=== PATIENT | female | born 1970 | race Caucasian/White ===

== ENCOUNTER 2018-05-02 18:01 | Emergency (ER) | payer SELFPAY ==
--- NOTE | 2018-05-02 18:41 | UC ---
Respiratory Complaint HPI - HPI Summary HPI Summary: 47-year-old woman comes in with a chief complaint of 4 days of upper respiratory tract infection symptoms and chest congestion. She's having yellow sputum coughing. No chest pain. She has some runny nose some sore throat. No bodyaches. Patient also reports that she's had a rash for year that has been described as as staph. And she seen a freight car builder for this condition where she previously lived. She is new coming [facility] to [facility] and does not have freight car builder here in [place]. - History of Current Complaint Chief Complaint: UCGeneralIllness Stated Complaint: uri Time Seen by Provider: 05/02/18 18:31 Hx Last Menstrual Period: over 3 weeks ago Pain Intensity: 0 - Allergies/Home Medications Allergies/Adverse Reactions: Allergies Allergy/AdvReac Type Severity Reaction Status Date / Time No Known Allergies Allergy Verified 05/02/18 18:20 Home Medications: Home Medications Doxepin (NF) 25 mg PO BEDTIME 05/02/18 [History Confirmed 05/02/18] Methylphenidate HCl [Methylphenidate ER] 72 mg PO DAILY 05/02/18 [History Confirmed 05/02/18] PMH/Surg Hx/FS Hx/Imm Hx Previously Healthy: Yes - Surgical History Surgical History: Yes Surgery Procedure, Year, and Place: c section - Family History Known Family History: Positive: Non-Contributory - Social History Alcohol Use: Daily Substance Use Type: None Smoking Status (MU): Never Smoked Tobacco Review of Systems All Other Systems Reviewed And Are Negative: Yes Constitutional: Positive: Negative Skin: Positive: Negative Eyes: Positive: Negative ENT: Positive: Sore Throat, Nasal Discharge, Sinus Congestion Respiratory: Positive: Shortness Of Breath, Cough Cardiovascular: Positive: Negative Gastrointestinal: Positive: Negative Motor: Positive: Negative Neurovascular: Positive: Negative Musculoskeletal: Positive: Negative Neurological: Positive: Negative Psychological: Positive: Negative Is Patient Immunocompromised?: No Physical Exam Triage Information Reviewed: Yes Appearance: No Pain Distress, Well-Nourished, Ill-Appearing - mild Vital Signs: Initial Vital Signs Temp 99.4 F 05/02/18 18:16 Pulse 105 05/02/18 18:16 Resp 20 05/02/18 18:16 BP 150/102 05/02/18 18:16 Pulse Ox 100 05/02/18 18:16 Vital Signs Reviewed: Yes Eye Exam: Normal Eyes: Positive: Conjunctiva Clear ENT: Positive: Pharyngeal erythema, Nasal congestion, Nasal drainage, TMs normal Neck exam: Normal Neck: Positive: Supple Respiratory: Positive: Lungs clear, Normal breath sounds, No respiratory distress Cardiovascular: Positive: RRR Musculoskeletal Exam: Normal Musculoskeletal: Positive: Strength Intact, ROM Intact Neurological Exam: Normal Neurological: Positive: Alert, Muscle Tone Normal Psychological Exam: Normal Psychological: Positive: Normal Response To Family, Age Appropriate Behavior Skin Exam: Normal UC Diagnostic Evaluation - Laboratory O2 Sat by Pulse Oximetry: 100 Respiratory Course/Dx - Course Course Of Treatment: DISCUSSED VIRAL VERSES BACTERIAL INFECTION AND THE ROLE OF ANTIBIOTICS. THE PATIENT WISHES TO BE ON ANTIBIOTIC AT THIS TIME. - Differential Dx/Diagnosis Provider Diagnosis: Bronchitis, Rash Discharge - Sign-Out/Discharge Documenting (check all that apply): Patient Departure All imaging exams completed and their final reports reviewed: No Studies - Discharge Plan Condition: Stable Disposition: HOME Prescriptions: Amoxicillin/Clavulanate TAB* [Augmentin TAB 875*] 875 mg PO BID #20 tab Patient Education Materials: Acute Bronchitis (ED), Acute Rash (ED) Referrals: [facility] [Outside] Antonio Busch MD [Medical Doctor] - Steff Shah [Medical Doctor] - Additional Instructions: FOLLOW UP WITH YOUR DOCTOR IF NOT COMPLETELY IMPROVED. GET RECHECKED FOR ANY WORSENING OF YOUR CONDITION OR QUESTIONS OR CONCERNS. - Billing Disposition and Condition Condition: STABLE Disposition: Home
== END 2018-05-02 18:45 | disposition home or self-care (01) ==
LOC: UCEAST 18:01
DX: J40 Bronchitis, not specified as acute or chronic (principal); R21 Rash and other nonspecific skin eruption
CPT/HCPCS: 99202; G0463

== ENCOUNTER 2018-10-21 16:52 | Emergency (ER) | payer SELFPAY ==
[2018-10-21] MEDS ORDERED: NS 0.9% 1000 ML** 1,000 ML IV ONE (17:15)
--- NOTE | 2018-10-21 17:29 | ED ---
Substance Abuse/Use - HPI Summary HPI Summary: A 47 y/o female brought in by [facility] presents to [facility] with a chief complaint of possible substance abuse of an unknown substance today. The patient is currently AMS. Per significant other, the patient has a Hx of EtOH abuse. The patient may have had access to Xanax or Ativan. The patient reportedly drank alcohol of an unknown amount today. Per boyfriend, the patient had been depressed and had been staying with her sister and father for a few weeks. He denies her using any street drugs. Her boyfriend states that the patient was last known well at 15:30. The patient is a level 5 caveat due to her AMS. - History Of Current Complaint Stated Complaint: AMS PER EMS Hx Obtained From: Family/Education Analyst, EMS Hx Last Menstrual Period: over 3 weeks ago Onset/Duration of Drug/ETOH Abuse: Hours Ingestion History: Type/Name Of Drug - unknown, Amount Ingested - unknown, Approximate Time Of Ingestion - unknown Overdose Characteristics: Oral Severity Initially: Mild Severity Currently: Mild Character: Other - AMS Aggravating Factor(s): Nothing Alleviating Factor(s): Nothing Associated Signs And Symptoms: Other: - AMS - Allergies/Home Medications Allergies/Adverse Reactions: Allergies Allergy/AdvReac Type Severity Reaction Status Date / Time No Known Allergies Allergy Verified 05/02/18 18:20 Home Medications: Home Medications NK [No Home Medications Reported] 10/21/18 [History Confirmed 10/21/18] PMH/Surg Hx/FS Hx/Imm Hx Endocrine/Hematology History: Denies: Hx Diabetes, Hx Thyroid Disease Cardiovascular History: Reports: Hx Hypertension Respiratory History: Denies: Hx Asthma, Hx Chronic Obstructive Pulmonary Disease (COPD) GI History: Denies: Hx Ulcer - Surgical History Surgery Procedure, Year, and Place: c section Infectious Disease History: No Infectious Disease History: Denies: Hx Hepatitis, Hx Human Immunodeficiency Virus (HIV), Traveled Outside the [place] in Last 30 Days - Family History Known Family History: Positive: Non-Contributory - Social History Alcohol Use: Daily Substance Use Type: Reports: None Smoking Status (MU): Never Smoked Tobacco Review of Systems - ROS Summary Review of Systems Summary: Level 5 caveat due to AMS Negative: Fever Neurological: Other - positive: AMS, possible substance abuse All Other Systems Reviewed And Are Negative: No Physical Exam - Summary Physical Exam Summary: Level 5 Caveat due to AMS, thrashing on beds Constitutional: dis-sheveled, thrashing on bed Skin: Warm, Dry, Diffuse scabbing to arms and face HENT: Normocephalic; Atraumatic, dry mucous membranes Eyes: Conjunctiva normal Neck: Musculoskeletal ROM normal neck. (-) JVD, (-) Stridor, (-) Nuchal rigidity Cardio: Rhythm regular, tachycardic, Heart sounds normal; Intact distal pulses; Radial pulses are 2+ and symmetric. (-) Murmur Pulmonary/Chest wall: Effort normal. (-) Respiratory distress, (-) Wheezes, (-) Rales Abd: Soft, (-) tenderness, (-) Distension, (-) Guarding, (-) Rebound Musculoskeletal: (-) Edema Lymph: (-) Cervical adenopathy Neuro: intermittently responding to boyfriend, moving all extremities, no focal neurological deficits Psych: deferred Triage Information Reviewed: Yes Vital Signs On Initial Exam: Initial Vitals Temp Pulse Resp BP Pulse Ox 97.7 F 126 13 185/142 95 10/21/18 16:53 10/21/18 16:53 10/21/18 16:53 10/21/18 16:53 10/21/18 16:53 Vital Signs Reviewed: Yes - [place] Coma Scale Best Eye Response: 4 - Spontaneous Best Motor Response: 5 - Purposeful Movement Best Verbal Response: 2 - Incomprehensible Words Coma Scale Total: 11 Diagnostics - Vital Signs Vital Signs Temp Pulse Resp BP Pulse Ox 10/21/18 16:53 97.7 F 126 13 185/142 95 - Laboratory Result Diagrams: 10/21/18 17:37 10/21/18 17:37 Lab Statement: Any lab studies that have been ordered have been reviewed, and results considered in the medical decision making process. - CT Brain CT Interpretation Completed By: Radiologist Summary of CT Findings: No acute intracranial findings, but limited study. ED physician has reviewed this imaging report. - EKG 17:50 Cardiac Rate: NL - 83 bpm EKG Rhythm: Sinus Rhythm Summary of EKG Findings: An EKG at 17:50 reveals normal sinus rhythm at 83 bpm, nml axis, nml intervals. No STEMI. No acute changes. Re-Evaluation - Re-Evaluation First Eval Re-Evaluation Time: 18:31 Change: Unchanged Comment: Labs notable for a serum alcohol of 420 and elevated TSH, will check a T4 Second Eval Re-Evaluation Time: 20:30 Change: Improved Comment: Pt ambulating in room with a steady gait, patient's partner states he' ll bring her home. Patient has a safe ride and place to go. Patient will be discharged. Course/Dx - Course Course Of Treatment: 47-year-old female with a history of EtOH abuse presents with altered mental status. - Exam unable to obtain history. No signs of trauma but patient altered. Given that this patient has normal O2, BG of hypoxia and hypoglycemia/DKA less likely. DDx still includes: alcohol, electrolyte abnl, thyroid issues, infection/sepsis, drug overdose, hypothermia, uremia, trauma, encephalopathy/encephalitis, psych, stroke, SAH, postictal from seizure. Will check labs, head ct, urine, ekg, cxr. Reassess. suspect 2/2 substance use - Diagnoses Provider Diagnoses: Alcohol intoxication, Altered mental status Discharge - Sign-Out/Discharge Documenting (check all that apply): Patient Departure - eloped Patient Received Moderate/Deep Sedation with Procedure: No - Discharge Plan Condition: Stable Disposition: ELOPEMENT Patient Education Materials: Alcohol Intoxication (ED) Referrals: [facility] [Outside] Additional Instructions: You were seen in the emergency department for alcohol intoxication. Do not drink and drive. If any studies were not completed at the time of discharge you will be called with the relevant results. Please follow up with your primary care doctor in next 2-3 days and return to emergency department for worsening or concerning symptoms. - Billing Disposition and Condition Condition: STABLE Disposition: Elopement - Attestation Statements Document Initiated by Michael: Yes Documenting Scribe: Douglas Larson Provider For Whom Michael is Documenting (Include Credential): Sherri England MD Scribe Attestation: I, Douglas Larson, scribed for Sherri England MD on 10/21/18 at 2106. Scribe Documentation Reviewed: Yes Provider Attestation: The documentation as recorded by the Douglas zhang accurately reflects the service I personally performed and the decisions made by me, Sherri England MD Status of Scribe Document: Viewed
[2018-10-21 17:46] LABS: ABS Basophils 0.1 10^3/ul (0-0.2); ABS Eosinophils 0.1 10^3/ul (0-0.6); ABS Lymphocytes 2.1 10^3/ul (1.0-4.8); ABS Monocytes 0.5 10^3/ul (0-0.8); ABS Neutrophils 5.2 10^3/ul (1.5-7.7); Eosinophil % 1.7 %; Hematocrit 39 % (35-47); Hemoglobin 13.5 g/dL (12.0-16.0); Lymphocyte % 26.4 %; Mean Corpuscular HGB Conc 35 g/dL (31-36); Mean Corpuscular Hemoglobin 32 pg (27-31); Mean Corpuscular Volume 90 fL (80-97); Platelet Count 346 10^3/uL (150-450); Red Blood Count 4.28 10^6 /uL (3.70-4.87); Red Cell Distribution Width 15 % (10-15)
[2018-10-21 17:46] LABS: Urine Appearance Clear; Urine Bilirubin Negative (Negative); Urine Blood Negative (Negative); Urine Color Straw; Urine Glucose Negative (Negative); Urine Ketones Negative (Negative); Urine Nitrite Negative (Negative); Urine Protein Negative (Negative); Urine Specific Gravity 1.002 (1.010-1.030); Urine Urobilinogen Negative (Negative)
[2018-10-21 18:06] LABS: ALT 11 U/L (7-52); AST 18 U/L (13-39); Albumin 4.4 g/dL (3.2-5.2); Albumin/Globulin Ratio 1.4 (1-3); Alkaline Phosphatase 65 U/L (34-104); Anion Gap 9 mmol/L (2-11); BUN/Creatinine Ratio 15.6 (8-20); Blood Urea Nitrogen 14 mg/dL (6-24); CO2 Carbon Dioxide 24 mmol/L (22-32); Calcium 9.3 mg/dL (8.6-10.3); Chloride 110 mmol/L (101-111); EGFR African American 80.5 (>60); EGFR Non-African American 66.5 (>60); Globulin 3.1 g/dL (2-4); Glucose 107 mg/dL (70-100); Potassium 3.8 mmol/L (3.5-5.0); Sodium 143 mmol/L (135-145); Total Protein 7.5 g/dL (6.4-8.9)
[2018-10-21 18:10] LABS: Acetaminophen < 15 mcg/mL; Salicylate < 2.50 mg/dL (<30)
[2018-10-21 18:11] LABS: HCG Pregnancy < 0.60 mIU/mL
[2018-10-21 18:16] LABS: Alcohol 423 mg/dL (<10)
[2018-10-21 18:25] LABS: TSH (Thyroid Stimulating Horm) 7.41 mcIU/mL (0.34-5.60)
[2018-10-21 19:11] LABS: Free T4 0.68 ng/dL (0.61-1.12)
[2018-10-21 19:51] LABS: Urine Benzodiazepine Screen None Detected (None Detect); Urine Opiates Screen None Detected (None Detect)
[2018-10-21 21:09] VITALS: BP 0/0
== END 2018-10-21 21:00 | disposition left against medical advice (07) ==
LOC: ED 16:52
DX: F10.929 Alcohol use, unspecified with intoxication, unspecified (principal); R41.82 Altered mental status, unspecified; I10 Essential (primary) hypertension
CPT/HCPCS: 36415; 70450; 80053; 80307; 80320; 80329; 81003; 82140; 83605; 84439; 84443; 84484; 84702; 85025; 93005; 99285; G0480